=== PATIENT | female | born 1995 | race Caucasian/White ===

== ENCOUNTER 2025-01-01 00:10 | Inpatient (IN) ==
[2025-01-01] MEDS: OXYTOCIN 30 UNITS/NSS 30 UNITS/500 ML BAG IV PRN (00:26)
[2025-01-01] MEDS ORDERED: LACTATED RINGER'S 1,000 ML IV PRN (00:38)
[2025-01-01] MEDS ORDERED: oxyCODONE/ACETAMINOPHEN 5mg/325mg TAB PO PRN (00:38)
[2025-01-01] MEDS ORDERED: OXYTOCIN 30 UNITS/NSS 30 UNITS/500 ML BAG IV PRN (00:38)
[2025-01-01] MEDS ORDERED: ACETAMINOPHEN 325 MG TAB PO PRN (00:38)
[2025-01-01] MEDS ORDERED: LIDOCAINE 1% LOCAL 20 ML VIAL INFIL PRN (00:38)
[2025-01-01] MEDS ORDERED: HYDROCORTISONE ACETATE 25 MG SUPP PR PRN (00:38)
--- NOTE | 2025-01-01 00:55 | History & Physical Report ---
Date of Service January 01, 2025 Assessment & Plan (1) Normal labor: Plan: Patient arrives back to L&D fully dilated with urge to push please see orders and delivery summary Admission and Anticipated Discharge Date Admission Date: January 01, 2025 History of Present Illness Primary Care Provider: Charles Jackson DO Patient is a 29 yo female EDC 01/21/25 who presents at 37 1/7 weeks in active labor. SPROM for clear fluid prior to heading to the hospital. She has the urge to push upon arrival in L&D. GBS-negative. complicated by diet controlled GDM. Allergies Allergy/AdvReac Type Severity Reaction Status Date / Time amoxicillin AdvReac Intermediate Rash Verified 12/31/24 21:02 Home Medications Medication Instructions Recorded Confirmed Type omeprazole 20 mg capsule,delayed 20 mg PO DAILY 06/06/24 12/31/24 History release prenat.vits,troy,ive-fjsm-jwgho 1 tab PO DAILY 06/06/24 12/31/24 History fluoxetine 10 mg tablet 10 mg PO DAILY #90 tabs 10/30/24 12/31/24 Rx cetirizine 10 mg tablet (Zyrtec) 10 mg PO DAILY 11/08/24 12/31/24 History acetone (urine) test (Ketone Urine #50 ea 11/16/24 12/26/24 Rx Test strips) blood sugar diagnostic (OneTouch #150 ea 11/16/24 12/26/24 Rx Verio test strips) blood-glucose meter (OneTouch #1 ea 11/16/24 12/26/24 Rx Verio Reflect Meter) lancets 33 gauge (OneTouch Delica #150 ea 11/16/24 12/26/24 Rx Plus Lancet) Patient History Medical History (Updated 01/01/25 @ 00:53 by Yvonne Aguilar MD, FACOG) History of gastroesophageal reflux (GERD) History of ovarian cyst Surgical History S/P wisdom tooth extraction No history of previous surgery Family History Mother Anxiety Father Anxiety Brother Anxiety Other Heart disease Denies family history of Ovarian cancer Prostate cancer Breast cancer Colorectal cancer Social History Smoking Status: Never smoker Do You Dip or Chew Tobacco: No; Hx Alcohol Use: No Hx Substance Use: No Preferred Language: Monegasque marital status: marital status details: Pilo (29) [phone] Current Living Situation: Spouse Current Living Situation Comment: lives with spouse, 1dog, 2cats, spouse to change litter current occupational status: employed current occupation: Feels Safe at Home: Yes Diet: regular Dental Care, Regularly: No Physical Activity Frequency: 5-6 Times per Week Seatbelt Use: always Sunscreen Use: Yes Do you think of yourself as: straight/heterosexual Gender Identity: Female Assistive Devices: Contacts and Glasses Review of Systems All systems reviewed & are unremarkable except as noted in HPI & below Physical Exam Constitutional: WD/WN, vitals as above Psychiatric: A+Ox3, euthymic affect Genitourinary: OB Exam Abdomen: + vertex and + regular contractions (Q2-3 minutes) Manual OB Exam: + cervical dilation 10 cm, + cervical effacement 100% and + station + 2 OB Exam Monitor Tracing: + external FHT monitor used, + external uterine monitor used and + variable decelerations bradycardia (prolonged decel to 70bpm with slow recovery ) Results & Data Vital Signs (Past 12 Hours) Vital Signs Pulse BP 01/01/25 00:38 80 148/69 H 01/01/25 00:36 86 175/99 H 01/01/25 00:21 69 142/79 H Coding Level of Care Code 24508 INT INP/OBS CARE 1/40MIN Diagnoses Normal labor O80; Z37.9
--- NOTE | 2025-01-01 01:04 | Delivery Summary ---
Vaginal Delivery Summary Date of Service January 01, 2025 Vaginal Delivery Summary and 1st Degree LAC (superficial labial & perineal -not repaired) Patient is a 29-year-old 1 P0 female EDC of 01/21/2025 who presents at 37-1/7 weeks in active labor. She been evaluated at 10 PM and found to be 1 cm dilated. She elected to go home to wait for more regular contractions. At 11:30 PM, contractions were every 2 minutes and water ruptured for clear fluid. She arrived to labor and delivery fully dilated and +2 station with the urge to push. She pushed effectively over intact perineum for delivery of a viable female . After the head was delivered, the shoulders were delivered without maternal effort. She was placed on mother's abdomen for further tension and drying. After 1 minute, the cord was clamped and cut. After cord blood was obtained, the placenta was expressed intact with a three-vessel cord. There were superficial abrasions on both labia and at the fourchette which were not bleeding and therefore not repaired. bleeding was controlled with dilute Pitocin and fundal massage. QBL was 103 mL. Mother and baby were doing well after delivery. [facility] [place]ag[place] Delivery Charge Delivery Type Details: and 1st Degree LAC (superficial labial & perineal - not repaired)
[2025-01-01 01:13] LABS: Hematocrit (blood only) 38.8 % (37.0-47.0); Hemoglobin 13.4 g/dl (12.0-16.0); Mean Corpuscular Hemoglobin 33.4 pg (25.0-34.0); Mean Corpuscular Hgb Conc 34.5 g/dL (32.0-36.0); Mean Corpuscular Volume 96.8 fL (80.0-100.0); Mean Platelet Volume 10.6 fL (9.4-12.4); Platelet Count 181 K/uL (130-400); RDW Coefficient of Variation 13.1 % (11.5-14.5); RDW Standard Deviation 46.5 fL (36.4-46.3); Red Blood Count 4.01 M/uL (4.20-5.40); White Blood Count 13.38 K/ul (4.8-10.8)
[2025-01-01] MEDS: IBUPROFEN 600 MG TAB PO PRN (01:53)
[2025-01-01] MEDS: BENZOCAINE 20% SPRY 85 APPLN/85 GM CAN EXT PRN (01:54)
[2025-01-01] MEDS: DIPHTHER/TETAN/PERTUS Vaccine (Tdap, Adol/Adult) 0.5mL IM ONE (02:04)
[2025-01-01] MEDS: FLUoxetine HCL 10 MG CAP PO SCH (08:07)
[2025-01-01] MEDS: DOCUSATE SODIUM 100 MG CAP PO SCH (08:07)
[2025-01-01] MEDS: PRENATAL VITAMIN 1 TAB PO SCH (08:07)
--- NOTE | 2025-01-01 08:31 | Obstetrical Progress Note ---
Date of Service January 01, 2025 Assessment & Plan (1) Encounter for care and examination after delivery: satisfactory course continue current care plan Subjective Ambulation: ambulating normally Voiding: no voiding problems Passing Gas:: Yes Diet Tolerance:: regular diet Lochia:: Moderate Feeding Type:: breast feeding hasn't had a lot of sleep since delivery but otherwise doing well. Review of Systems All systems reviewed & are unremarkable except as noted in HPI & below Physical Exam Constitutional WD/WN, vitals as above Psychiatric A+Ox3, euthymic affect Results & Data Vital Signs (Past 12 Hours) Vital Signs Temp Pulse Pulse Resp BP BP Pulse Ox 01/01/25 07:13 98.1 F 49 L 16 129/78 99 01/01/25 03:33 98.2 F 57 L 17 130/81 97 01/01/25 02:39 63 01/01/25 02:39 123/76 01/01/25 02:24 67 01/01/25 02:24 126/81 01/01/25 02:09 62 01/01/25 02:09 129/80 01/01/25 01:54 55 L 01/01/25 01:54 129/79 01/01/25 01:39 55 L 01/01/25 01:39 133/81 01/01/25 01:26 18 01/01/25 01:26 97.9 F 18 01/01/25 01:24 64 01/01/25 01:24 117/73 01/01/25 01:09 64 01/01/25 01:09 136/86 01/01/25 00:54 75 01/01/25 00:54 150/78 H 01/01/25 00:38 80 148/69 H 01/01/25 00:36 86 175/99 H 01/01/25 00:21 69 142/79 H O2 Del Method 01/01/25 07:13 Room Air 01/01/25 03:33 Room Air 01/01/25 02:39 01/01/25 02:39 01/01/25 02:24 01/01/25 02:24 01/01/25 02:09 01/01/25 02:09 01/01/25 01:54 01/01/25 01:54 01/01/25 01:39 01/01/25 01:39 01/01/25 01:26 01/01/25 01:26 01/01/25 01:24 01/01/25 01:24 01/01/25 01:09 01/01/25 01:01/01/25 00:54 01/01/25 00:54 01/01/25 00:38 01/01/25 00:36 01/01/25 00:21
[2025-01-01] MEDS: PANTOprazole 40 MG TAB PO SCH (17:35)
--- NOTE | 2025-01-02 05:47 | Obstetrical Progress Note ---
Date of Service January 02, 2025 Assessment & Plan (1) Encounter for care and examination after delivery: (2) Gestational diabetes: Plan Pt is 29 yo post- day 1 s/p at 37w1d. complicated by diet- controlled GDM. Pt doing well and ready to discharge home - Encourage ambulation - Encourage breast feeding - Pain control with tylenol and ibuprofen - Anticipate DC today Admission and Anticipated Discharge Date Admission Date: January 01, 2025 Supervising Physician Co-Signing Physician Notes Resident Physician Supervision Note: I was present with Dr. Ramos during the history and exam. I discussed the case with the resident and agree with the findings and plan as documented in the note. Any exceptions or clarifications are listed here: stable doing well. desires dc home, eating, voiding, ambulating, breast feeding. no bleeding issues. abd soft ff 2 down nt, ext nt calves. ppd #1 s/p , instructions reviewed, f/u 6wk pp check, breast rhpos, ri. Documented By: Audra Wadsworth MD, FACOG Subjective Pt is 29 yo post- day 1 s/p at 37w1d. Ambulation:In room Voiding:voiding normally Passing gas: yes BM: yes Diet tolerance:regular diet Lochia:bloody, no clots Feeding type: breast Current pain level: 0-3 /10 improved with ibuprofen Resting comfortably this morning in NAD. Denies SHANE, CP, SOB, N/V/D, LE pain/swelling. Review of Systems Review of Systems: As per HPI Physical Exam Constitutional: WD/WN, vitals as above Respiratory: normal respiratory effort, lungs clear to auscultation Cardiovascular: RRR, no murmur, no edema Gastrointestinal (Abdomen): normal bowel sounds, soft, nontender, no hepatosplenomegaly Uterine fundus firm and at 1 cm below level of umbilicus Neurologic: PERRL, EOMI, accommodation nl, no face palsy, no dysarthria Moving all 4 extremities on command Psychiatric: A+Ox3, euthymic affect Results & Data Vital Signs (Past 12 Hours) Vital Signs Temp Pulse Resp BP Pulse Ox O2 Del Method 01/02/25 01:30 37.0 C 60 14 119/73 Room Air 01/01/25 20:30 36.5 C 67 20 125/80 100 Room Air Resident Activity Tracking Resident Involvement: Resident Care Provided Care Provided: Adult Hospital Medicine
[2025-01-02 06:08] LABS: Hematocrit (blood only) 34.9 % (37.0-47.0); Mean Corpuscular Hemoglobin 33.2 pg (25.0-34.0); Mean Corpuscular Hgb Conc 34.4 g/dL (32.0-36.0); Mean Corpuscular Volume 96.7 fL (80.0-100.0); Mean Platelet Volume 10.5 fL (9.4-12.4); Platelet Count 182 K/uL (130-400); RDW Coefficient of Variation 13.1 % (11.5-14.5); RDW Standard Deviation 46.5 fL (36.4-46.3); Red Blood Count 3.61 M/uL (4.20-5.40)
[2025-01-02 07:05] VITALS: PULSE 62
[2025-01-02 09:54] VITALS: BP 129/79; RESP 20; TEMP 97.3; O2SAT 20
[2025-01-02] MEDS ORDERED: bisacodyL 5 MG TABEC PO SCH (20:00)
[2025-01-03] MEDS ORDERED: bisacodyL 10 MG SUPP PR PRN (00:38)
== END 2025-01-02 14:35 | disposition home or self-care (01) | DRG 807 ==
LOC: OPB 00:10 → 4S1 00:13 → 4E2 03:05